=== PATIENT | female | born 1970 | race Caucasian/White ===

== ENCOUNTER 2021-07-28 20:54 | Inpatient (IN) ==
[2021-07-28] MEDS ORDERED: Ipratropium/Albuterol Neb 3 ML IH ONE ×2 (21:31→23:21)
[2021-07-28] MEDS ORDERED: 0.9 % Sodium Chloride 1,000 ML IVC ONE (21:32)
[2021-07-28 22:06] LABS: VBG HCO3 24 mEq/L (21-27); VBG PCO2 29 mmHg (41-51); VBG PH 7.52 pH Units (7.32-7.42); VBG PO2 153 mmHg (25-50)
[2021-07-28 22:10] LABS: Hemoglobin 8.8 g/dL (11.5-15.4); Mean Corpuscular HGB Conc 33.8 g/dL (31.6-35.5); Mean Corpuscular Hemoglobin 29.3 pg (28.0-33.3); Mean Corpuscular Volume 86.7 fL (83.0-100.0); Mean Platelet Volume 9.6 fL (9.4-12.4); Platelet Count 255 K/mcL (140-400); Red Cell Distribution Width 13.5 % (11.5-14.5); White Blood Count 20.7 K/mcL (4.3-11.1)
[2021-07-28] MEDS ORDERED: *HR* OxyCODONE Immed Rel 5 MG TABLET PO STA (22:10)
[2021-07-28 22:17] LABS: INR 1.4; Prothrombin Time 16.1 Seconds (9.4-12.1)
[2021-07-28 22:20] LABS: Activated Partial Thrombo Time 26.3 Seconds (26.0-36.0)
[2021-07-28 22:26] LABS: Lymphocytes # 0.8 K/mcL (0.6-4.6); Monocytes # 0.4 K/mcL (0.0-1.3); Neutrophils # 19.5 K/mcL (1.6-8.9)
[2021-07-28 22:27] LABS: Platelet Estimate Normal (Normal)
[2021-07-28 22:29] LABS: Influenza A PCR Negative (Negative); Influenza B PCR Negative (Negative); Resp. Syncytial Virus PCR Negative (Negative)
[2021-07-28 22:32] LABS: SARS-CoV-2 by PCR (In House) Negative (Negative)
[2021-07-28 22:37] LABS: Alanine Aminotransferase 16 Units/L (7-52); Albumin 2.8 g/dL (3.5-5.7); Albumin/Globulin Ratio 1.1 (1.1-2.2); Alkaline Phosphatase 97 Units/L (34-104); Aspartate Amino Transferase 16 Units/L (13-39); BUN/Creatinine Ratio 21 (6-26); Blood Urea Nitrogen 11 mg/dL (6-20); Calcium 8.2 mg/dL (8.6-10.3); Carbon Dioxide 24 mEq/L (23-29); Chloride 94 mEq/L (98-107); Globulin 2.5 g/dL (2.4-3.5); Glucose 134 mg/dL (70-105); Osmolality,Calculated 267 (280-300); Potassium 3.5 mEq/L (3.5-5.1); Sodium 128 mEq/L (136-145); Total Protein 5.3 g/dL (6.4-8.9); Troponin I 0.04 ng/mL (< 0.04); eGFR For African Americans > 60 (> 60); eGFR For Non-African Americans > 60 (> 60)
[2021-07-28] MEDS ORDERED: Isovue-370 500 ML BOTTLE IVP ONE (22:42)
[2021-07-29] MEDS ORDERED: Ondansetron 4 MG/2 ML VIAL IVP PRN (01:30)
[2021-07-29] MEDS ORDERED: *HR* HYDROcodone/Acet 5/325 mg TABLET PO PRN (01:30)
[2021-07-29] MEDS ORDERED: Melatonin 3 MG TABLET PO PRN (01:30)
[2021-07-29] MEDS ORDERED: Naloxone 0.4 MG/ML INJ IVP PRN (01:30)
[2021-07-29] MEDS ORDERED: Acetaminophen 325 MG TABLET PO PRN (01:30)
[2021-07-29] MEDS ORDERED: Saliva Stimulant 44.3ml BOTTLE PO PRN (01:46)
[2021-07-29] MEDS ORDERED: *HR* OxyCODONE Immed Rel 5 MG TABLET PO PRN (01:50)
[2021-07-29] MEDS ORDERED: Sennosides/Docusate Sodium TABLET PO PRN (01:51)
[2021-07-29] MEDS ORDERED: Vancomycin 1,250 MG/262.5 ML IV.SOLN IVPB ONE (02:03)
[2021-07-29] MEDS ORDERED: methylPREDNISolone 125 MG/2 ML VIAL IVP ONE (02:47)
[2021-07-29] MEDS ORDERED: *HR* Dextrose 50 % in Water (Syg) 50 ML SYRINGE IVP PRN (02:49)
[2021-07-29] MEDS ORDERED: Dextrose 4 GM Chewable Tablets PO PRN ×2 (02:49)
[2021-07-29] MEDS ORDERED: D5% in Water 1,000 ML IVC PRN (02:49)
[2021-07-29] MEDS ORDERED: *HR* OxyCODONE/APAP 7.5/325 TABLET PO PRN (02:51)
[2021-07-29 03:03] LABS: Basophils % 0.2 %; Eosinophils # 0.5 K/mcL (0.0-0.6); Eosinophils % 2.5 %; Hematocrit 23.7 % (35.3-44.9); Hemoglobin 8.2 g/dL (11.5-15.4); Immature Granulocytes % 0.9 % (0-4); Lymphocytes % 5.2 %; Mean Corpuscular HGB Conc 34.6 g/dL (31.6-35.5); Mean Corpuscular Hemoglobin 30.1 pg (28.0-33.3); Mean Corpuscular Volume 87.1 fL (83.0-100.0); Mean Platelet Volume 9.9 fL (9.4-12.4); Monocytes # 0.1 K/mcL (0.0-1.3); Monocytes % 0.4 %; Neutrophils # 17.9 K/mcL (1.6-8.9); Platelet Count 245 K/mcL (140-400); Red Blood Count 2.72 M/mcL (3.82-4.97); Red Cell Distribution Width 13.6 % (11.5-14.5); Segmented Neutrophils % 90.8 %; White Blood Count 19.7 K/mcL (4.3-11.1)
[2021-07-29 03:12] LABS: INR 1.4; Prothrombin Time 15.6 Seconds (9.4-12.1)
[2021-07-29 03:15] LABS: Activated Partial Thrombo Time 27.5 Seconds (26.0-36.0)
[2021-07-29 03:24] LABS: Alanine Aminotransferase 16 Units/L (7-52); Albumin 2.7 g/dL (3.5-5.7); Albumin/Globulin Ratio 0.9 (1.1-2.2); Alkaline Phosphatase 98 Units/L (34-104); Aspartate Amino Transferase 17 Units/L (13-39); BUN/Creatinine Ratio 19 (6-26); Blood Urea Nitrogen 10 mg/dL (6-20); Calcium 8.5 mg/dL (8.6-10.3); Carbon Dioxide 26 mEq/L (23-29); Chloride 94 mEq/L (98-107); Glucose 122 mg/dL (70-105); Magnesium 1.8 mg/dL (1.6-2.6); Osmolality,Calculated 270 (280-300); Phosphorous 5.1 mg/dL (2.7-4.5); Potassium 3.4 mEq/L (3.5-5.1); Sodium 130 mEq/L (136-145); Total Protein 5.7 g/dL (6.4-8.9); eGFR For African Americans > 60 (> 60); eGFR For Non-African Americans > 60 (> 60)
[2021-07-29 03:29] LABS: Procalcitonin 1.44 ng/mL (0.00-0.15)
[2021-07-29] MEDS ORDERED: *HR* LORazepam 2 MG/ML VIAL IVP PRN ×3 (03:43→04:00)
[2021-07-29] MEDS ORDERED: *HR* Promethazine 25 MG/ML VIAL IM PRN (04:00)
[2021-07-29] MEDS: Ipratropium/Albuterol Neb 3 ML IH SCH ×5 (04:40→19:59)
[2021-07-29 04:54] LABS: ABG Base Excess 1 mEq/L (-2 to 3); ABG HCO3 25 mEq/L (21-27); ABG Oxygen Saturation 93 % (95-98); ABG PCO2 36 mmHg (35-45); ABG PH 7.45 pH Units (7.32-7.45); ABG PO2 62 mmHg (85-104); ABG TCO2 26 mEq/L (20-26)
[2021-07-29] MEDS ORDERED: Furosemide 20 MG/2 ML VIAL IVP ONE (05:04)
[2021-07-29] MEDS: Saline Nasal Spray 44 ML BOTTLE NS PRN (05:05)
[2021-07-29 05:15] LABS: % Iron Saturation 37 % (15-50); Ethanol < 10 mg/dL (Less than 10); Ferritin 1249 ng/mL (10-120); Iron 72 mcg/dL (50-170); Lipase < 3 Units/L (11-82); Transferrin 139 mg/dL (203-362)
[2021-07-29 05:19] LABS: Folate 11.1 ng/mL (3.0-16.0)
[2021-07-29 06:32] LABS: Bilirubin,Urine Negative (Negative); Blood,Urine Negative (Negative); Clarity,Urine Clear (Clear); Color,Urine Light-Yellow (Yellow); Glucose,Urine (UA) Normal (Normal); Ketones,Urine Negative (Negative); Leukocyte Esterase,Urine Negative (Negative); Mucus,Urine Few per lpf (None-Few); Nitrite,Urine Negative (Negative); Protein,Urine 30 mg/dL (Neg-Trace); RBC,Urine 0-3 per hpf (0-3); Specific Gravity,Urine 1.026 (1.010-1.025); Squamous Epithelial Cell,Urine Few per hpf (None-Few); Urobilinogen,Urine Normal (Normal); WBC,Urine 0-3 per hpf (0-3)
[2021-07-29] MEDS ORDERED: Nicotine 2 MG GUM BC PRN (07:16)
[2021-07-29] MEDS: Budesonide/Formoterol 160/4.5 1 PUFF INH IH SCH ×2 (07:31→20:00)
[2021-07-29] MEDS: Lactobacillus 1 EACH CAP.SPRINK PO SCH ×2 (08:17→20:20)
[2021-07-29] MEDS: Multivit/Ca/Min/Fe/FA 1 TAB TABLET PO SCH (08:18)
[2021-07-29] MEDS: Calcium Gluconate 1gm/50mL 1 GM/50 ML BAG IVPB SCH ×2 (08:18→10:32)
[2021-07-29] MEDS: Cyanocobalamin (B-12) 1,000 MCG TABLET PO SCH (08:18)
[2021-07-29] MEDS: MethylPREDNISolone 40 MG/ML VIAL IVP SCH ×2 (08:18→14:59)
[2021-07-29] MEDS: Artificial Tears SOLN 15 ML BOTTLE BOTH EYES SCH ×4 (08:18→20:20)
[2021-07-29] MEDS: 0.9 % Sodium Chloride 1,000 ML IVC SCH (08:19)
[2021-07-29] MEDS: polyethylene glycoL 3350 17 GM POWD.PACK PO SCH (08:19)
[2021-07-29] MEDS: Nicotine 21 MG PATCH.TD24 TD SCH (08:27)
[2021-07-29 08:31] LABS: Immature Reticulocyte % 2.8 % (11.0-38.0); Retculocyte # 0.06 M/mcL (0.05-0.10); Reticulocyte % 2.3 % (1.6-2.8)
[2021-07-29] MEDS: Fluticasone Propionate Nasal 50 MCG/SPRAY BOTTLE NS SCH (08:35)
[2021-07-29 08:39] LABS: Bilirubin,Direct 0.5 mg/dL (0.0-0.2); Bilirubin,Indirect 0.6 mg/dL (0.0-1.0); Bilirubin,Total 1.1 mg/dL (0.3-1.0)
[2021-07-29] MEDS ORDERED: Chlorhexidine Rinse 15 ML MOUTHWASH MM SCH (09:00)
[2021-07-29] MEDS: levoFLOXacin 750 MG/150 ML 750 MG/150 ML BAG IVPB SCH (10:33)
[2021-07-29] MEDS: *HR* OxyCODONE Immed Rel 15 MG TABLET PO PRN ×2 (11:28→20:20)
[2021-07-29] MEDS: Folic Acid 1 MG in 0.9 % Sodium Chloride 50 ML IVPB SCH (11:29)
[2021-07-29] MEDS: *HR* LORazepam 0.5 MG TABLET PO PRN ×2 (11:34→20:20)
[2021-07-29] MEDS: Thiamine (B-1) 200 MG in 0.9 % Sodium Chloride 50 ML IVPB SCH (13:00)
[2021-07-30] MEDS: 0.9 % Sodium Chloride 1,000 ML IVC SCH (00:19)
[2021-07-30] MEDS: MethylPREDNISolone 40 MG/ML VIAL IVP SCH ×4 (00:19→23:24)
[2021-07-30 01:48] LABS: BUN/Creatinine Ratio 30 (6-26); Blood Urea Nitrogen 13 mg/dL (6-20); Carbon Dioxide 24 mEq/L (23-29); Chloride 99 mEq/L (98-107); Glucose 184 mg/dL (70-105); Osmolality,Calculated 281 (280-300); Potassium 3.5 mEq/L (3.5-5.1); Sodium 133 mEq/L (136-145); eGFR For African Americans > 60 (> 60); eGFR For Non-African Americans > 60 (> 60)
[2021-07-30 02:13] LABS: Basophils # 0.1 K/mcL (0.0-0.2); Basophils % 0.4 %; Hematocrit 23.7 % (35.3-44.9); Hemoglobin 7.9 g/dL (11.5-15.4); Immature Granulocytes % 4.4 % (0-4); Lymphocytes # 0.3 K/mcL (0.6-4.6); Lymphocytes % 1.6 %; Mean Corpuscular HGB Conc 33.3 g/dL (31.6-35.5); Mean Corpuscular Volume 87.1 fL (83.0-100.0); Mean Platelet Volume 10.5 fL (9.4-12.4); Monocytes % 0.2 %; Platelet Count 223 K/mcL (140-400); Red Blood Count 2.72 M/mcL (3.82-4.97); Red Cell Distribution Width 13.4 % (11.5-14.5); Segmented Neutrophils % 93.4 %; White Blood Count 19.6 K/mcL (4.3-11.1)
[2021-07-30 02:17] LABS: Neutrophils # 18.3 K/mcL (1.6-8.9)
[2021-07-30 02:59] LABS: Platelet Estimate Normal (Normal)
[2021-07-30] MEDS: Ipratropium/Albuterol Neb 3 ML IH SCH ×7 (03:54→23:30)
[2021-07-30] MEDS: *HR* OxyCODONE Immed Rel 15 MG TABLET PO PRN ×5 (05:04→23:28)
[2021-07-30] MEDS: *HR* Enoxaparin 40 MG/0.4 ML SYRINGE SQ SCH (05:04)
[2021-07-30] MEDS: Budesonide/Formoterol 160/4.5 1 PUFF INH IH SCH ×2 (07:37→19:53)
[2021-07-30] MEDS: Lactobacillus 1 EACH CAP.SPRINK PO SCH ×2 (09:13→19:29)
[2021-07-30] MEDS: Multivit/Ca/Min/Fe/FA 1 TAB TABLET PO SCH (09:13)
[2021-07-30] MEDS: Cyanocobalamin (B-12) 1,000 MCG TABLET PO SCH (09:14)
[2021-07-30] MEDS: polyethylene glycoL 3350 17 GM POWD.PACK PO SCH (09:14)
[2021-07-30] MEDS: Nicotine 21 MG PATCH.TD24 TD SCH (09:14)
[2021-07-30] MEDS: Fluticasone Propionate Nasal 50 MCG/SPRAY BOTTLE NS SCH (09:15)
[2021-07-30] MEDS: Saline Nasal Spray 44 ML BOTTLE NS PRN (09:15)
[2021-07-30] MEDS: Artificial Tears SOLN 15 ML BOTTLE BOTH EYES SCH ×4 (09:16→19:29)
[2021-07-30] MEDS: levoFLOXacin 750 MG/150 ML 750 MG/150 ML BAG IVPB SCH (09:17)
[2021-07-30] MEDS: Folic Acid 1 MG in 0.9 % Sodium Chloride 50 ML IVPB SCH (11:00)
[2021-07-30] MEDS: *HR* LORazepam 0.5 MG TABLET PO PRN ×2 (11:02→19:29)
[2021-07-30] MEDS: Thiamine (B-1) 100 MG TABLET PO SCH (11:40)
[2021-07-30] MEDS: Thiamine (B-1) 200 MG in 0.9 % Sodium Chloride 50 ML IVPB SCH (11:49)
[2021-07-31 02:17] LABS: Basophils # 0.1 K/mcL (0.0-0.2); Basophils % 0.6 %; Hematocrit 23.6 % (35.3-44.9); Hemoglobin 7.6 g/dL (11.5-15.4); Immature Granulocytes % 6.2 % (0-4); Lymphocytes # 0.3 K/mcL (0.6-4.6); Lymphocytes % 2.1 %; Mean Corpuscular HGB Conc 32.2 g/dL (31.6-35.5); Mean Corpuscular Hemoglobin 28.6 pg (28.0-33.3); Mean Corpuscular Volume 88.7 fL (83.0-100.0); Mean Platelet Volume 10.5 fL (9.4-12.4); Monocytes # 0.1 K/mcL (0.0-1.3); Monocytes % 0.4 %; Neutrophils # 10.9 K/mcL (1.6-8.9); Platelet Count 209 K/mcL (140-400); Red Blood Count 2.66 M/mcL (3.82-4.97); Red Cell Distribution Width 13.7 % (11.5-14.5); Segmented Neutrophils % 90.7 %
[2021-07-31] MEDS: *HR* OxyCODONE Immed Rel 15 MG TABLET PO PRN ×2 (03:43→09:18)
[2021-07-31] MEDS: *HR* LORazepam 0.5 MG TABLET PO PRN (03:47)
[2021-07-31] MEDS: Ipratropium/Albuterol Neb 3 ML IH SCH ×3 (04:13→11:11)
[2021-07-31] MEDS: *HR* Enoxaparin 40 MG/0.4 ML SYRINGE SQ SCH (05:39)
[2021-07-31] MEDS: Budesonide/Formoterol 160/4.5 1 PUFF INH IH SCH (07:20)
[2021-07-31] MEDS ORDERED: Folic Acid 1 MG TABLET PO SCH (09:00)
[2021-07-31] MEDS: levoFLOXacin 750 MG/150 ML 750 MG/150 ML BAG IVPB SCH (09:04)
[2021-07-31] MEDS: Fluticasone Propionate Nasal 50 MCG/SPRAY BOTTLE NS SCH (09:05)
[2021-07-31] MEDS: Lactobacillus 1 EACH CAP.SPRINK PO SCH (09:05)
[2021-07-31] MEDS: Multivit/Ca/Min/Fe/FA 1 TAB TABLET PO SCH (09:05)
[2021-07-31] MEDS: MethylPREDNISolone 40 MG/ML VIAL IVP SCH (09:05)
[2021-07-31] MEDS: Thiamine (B-1) 100 MG TABLET PO SCH (09:05)
[2021-07-31] MEDS: Nicotine 21 MG PATCH.TD24 TD SCH (09:06)
[2021-07-31] MEDS: polyethylene glycoL 3350 17 GM POWD.PACK PO SCH (09:06)
[2021-07-31] MEDS: Artificial Tears SOLN 15 ML BOTTLE BOTH EYES SCH ×2 (09:06→10:56)
[2021-07-31 10:20] LABS: Mycoplasma pneumoniae IgG 0.39 U/L (<=0.09)
[2021-07-31 10:41] VITALS: BP 127/64; PULSE 97; TEMP 97.9; O2SAT 95
[2021-07-31] MEDS ORDERED: Morphine Sulfate 2 MG/ML SYRINGE IVP ONE (10:47)
[2021-07-31] MEDS: Cyanocobalamin (B-12) 1,000 MCG TABLET PO SCH (10:55)
[2021-07-31] MEDS ORDERED: *HR* LORazepam 1 MG TABLET PO ONE (11:04)
[2021-07-31] MEDS ORDERED: *HR* OxyCODONE Immed Rel 15 MG TABLET PO ONE (12:00)
== END 2021-07-31 12:58 | disposition home health service (06) | DRG 720 ==
LOC: EMEROOARM 20:54 → 2ANU 20:54 → SUATTDRO 07-29 00:56 → 2ANU 07-29 01:52
PROVIDERS: ADMIT Internal Medicine; ATTEND Internal Medicine